=== PATIENT | female | born 1935 | race African-American/Black ===

== ENCOUNTER 2017-05-19 17:55 | Emergency (ER) | payer MEDICARE, MEDICAID ==
[~2017-05-19] VITALS: Ht 167.6 cm; Wt 63.5 kg
[~2017-05-19 17:55] MED LIST: ALENDRONATE SOD70 MG ORAL; CIPROFLOXACIN500 M2 ORAL; DULERA 100 MCG/13 GM INH; LISINOPRIL20 MG ORAL; NORCO 5-325 TA1 EACH ORAL
[2017-05-19 18:10] VITALS: BP 158/86
[2017-05-19] MEDS ORDERED: ATIVAN0.5 MG ORAL (19:29)
[2017-05-19 19:41] VITALS: BP 158/86
--- NOTE | 2017-05-19 21:01 | Emergency Room Report ---
History of Present Illness General Chief Complaint: Pain Source: Patient Present Illness HPI The patient is an 81-year-old female presenting for feelings of anxiety and abdominal pain. She states that her grandsons have been arguing and are involved in her for the past week which is when she began to feel anxious. She states that she is having difficulty sleeping due to this. She states the abdominal pain began after the feelings of anxiety and is described as a 4/10 sharp sensation to the right abdomen. Does not radiate. She denies any chest pain or shortness of breath. She denies any other symptoms including nausea, vomiting, fever, chills Allergies: Coded Allergies: No Known Allergies (Unverified , 11/15/13) Patient History Past Medical History: see triage record Pertinent Family History: none Reviewed Nursing Documentation: PMH: Agreed, PSxH: Agreed Nursing Documentation-PMH Past Medical History: No History, Except For Hx Cardiac Problems: No Hx Hypertension: Yes Hx Pacemaker: No Hx Asthma: No Hx COPD: Yes Hx Diabetes: No Hx Cancer: No Hx Gastrointestinal Problems: No Hx Dialysis: No History Of Psychiatric Problem: Yes - Anxiety Hx Neurological Problems: No Hx Cerebrovascular Accident: No Hx Seizures: No Review of Systems All Other Systems: negative except mentioned in HPI Physical Exam Vital Signs Date Time Temp Pulse Resp B/P (MAP) Pulse Ox O2 Delivery O2 Flow Rate FiO2 05/19/17 18:09 98.2 67 15 158/86 95 Room Air Sp02 EP Interpretation: reviewed, normal General Appearance: no apparent distress, alert, GCS 15, non-toxic Head: normocephalic, atraumatic Eyes: bilateral eye normal inspection, bilateral eye PERRL ENT: hearing grossly normal, normal pharynx, no angioedema, normal voice Neck: full range of motion, supple/symm/no masses Respiratory: chest non-tender, lungs clear, normal breath sounds, no accessory muscle use, respiratory distress, speaking full sentences Cardiovascular #1: regular rate, rhythm, no edema, no gallop, no murmur, no rub Gastrointestinal: normal bowel sounds, non tender, soft, non-distended, no guarding Genitourinary: normal inspection, no CVA tenderness Musculoskeletal: back normal, gait/station normal, normal range of motion, non- tender Neurologic: alert, oriented x3, responsive, motor strength/tone normal, sensory intact, speech normal Psychiatric: judgement/insight normal, memory normal, mood/affect normal, no suicidal/homicidal ideation Skin: normal color, no rash, warm/dry, well hydrated Medical Decision Making PA Attestation Dr. Elliott is my supervising physician. Patient management was discussed with my supervising physician Diagnostic Impression: Primary Impression: Anxiety ER Course The patient is an 81-year-old female presenting for feelings of anxiety and abdominal pain Differential diagnoses considered but not limited to anxiety, gastritis, ACS, cholecystitis, among others PE: NAD. RRR. Lungs CTA bilat Abd is soft and non tender EKG and CXR unremarkable The patient will be treated with low-dose Ativan for one week and is to follow up with her primary doctor as soon as possible. She understands. ER precautions are given EKG Diagnostic Results EP Interpretation: NSR. No acute findings Rate: normal - 61 Rhythm: NSR ST Segments: no acute changes ASA given to the pt in ED: No PA Scribe Text EKG was reviewed and read with my supervising physician. No acute ST segment changes are seen. Normal rate and rhythm. No acute changes. Chest X-Ray Diagnostic Results Chest X-Ray Diagnostic Results : Chest X-Ray Ordered: Yes # of Views/Limited/Complete: 1 View Indication: Chest Pain EP Interpretation: Yes Interpretation: no consolidation, no effusion, no pneumothorax Impression: No acute disease Electronically Signed by: Campbell Elliott MD PA Scribe Text I am acting as scribe for my supervising physician. My supervising physician's interpretation of the chest xrays are there is no consolidation, no effusion, no acute cardiopulmonary disease, no pneumothorax Last Vital Signs Date Time Temp Pulse Resp B/P (MAP) Pulse Ox O2 Delivery O2 Flow Rate FiO2 05/19/17 19:41 98.2 15 158/86 95 Room Air 05/19/17 18:09 67 Status: improved Disposition: HOME, SELF-CARE Condition: Improved Scripts Lorazepam* (ATIVAN*) 0.5 Mg Tablet 0.5 MG ORAL QHS, #7 TAB Prov: BALDEMAR GAMBOA 05/19/17 Patient Instructions: Panic Attacks Additional Instructions: I discussed my findings with the patient. All questions and concerns have been answered. Treatment and medication compliance have been addressed. I advised the patient that they need to follow up with Primary doctor as soon as possible. Return to ED if symptoms worsen, new symptoms arise, or if needed for any reason. Patient verbalized understanding of discharge instructions. BALDEMAR GAMBOA May 19, 2017 21:01
--- NOTE | 2017-05-20 09:55 | Diagnostic Imaging Report ---
Indication: Chest Technique: One view of the chest Comparison: 10/28/2007 Findings: Lungs and pleural spaces are clear. The heart size is normal. Aorta is elongated tortuous and calcified. No significant interim change Impression: No acute process
== END 2017-05-19 19:41 | disposition home or self-care (01) ==
LOC: EMR 19:40
DX: F41.9 Anxiety disorder, unspecified (principal); I10 Essential (primary) hypertension; J44.9 Chronic obstructive pulmonary disease, unspecified; R07.9 Chest pain, unspecified; R10.9 Unspecified abdominal pain
CPT/HCPCS: 71010; 93005; 99284

== ENCOUNTER 2017-12-29 14:54 | Emergency (ER) | payer MEDICARE, MEDICAID ==
[~2017-12-29] VITALS: Ht 162.6 cm; Wt 77.1 kg
[~2017-12-29 14:54] MED LIST changes: +ATIVAN0.5 MG ORAL
[2017-12-29 15:52] VITALS: BP 160/91
--- NOTE | 2017-12-29 16:06 | Emergency Room Report ---
History of Present Illness General Chief Complaint: Eye Problems Source: Patient (Gabby Tate) Present Illness HPI 82-year-old female presents to the emergency department complaining of acute onset of redness in the right eye that she noticed this morning. Patient denies pain she denies visual changes denies floaters, halos around lights, visual loss or blurry vision. Patient denies trauma or fall she denies history of high blood pressure. She denies taking blood thinning medications. Denies discharge from the eyes, crusting or itching. Patient denies swelling of the eyelids. Denies sudden headache. Denies photophobia (Gabby Tate) Allergies: Coded Allergies: No Known Allergies (Unverified , 11/15/13) Patient History Past Medical History: see triage record Past Surgical History: none Pertinent Family History: none Reviewed Nursing Documentation: PMH: Agreed; PSxH: Agreed (Gabby Tate) Nursing Documentation-PMH Past Medical History: No History, Except For Hx Cardiac Problems: No Hx Hypertension: Yes Hx Pacemaker: No Hx Asthma: No Hx COPD: Yes Hx Diabetes: No Hx Cancer: No Hx Gastrointestinal Problems: No Hx Dialysis: No Hx Neurological Problems: No Hx Cerebrovascular Accident: No Hx Seizures: No (Gabby Tate) Review of Systems All Other Systems: negative except mentioned in HPI (Gabby Tate) Physical Exam Vital Signs Date Time Temp Pulse Resp B/P (MAP) Pulse Ox O2 Delivery O2 Flow Rate FiO2 12/29/17 15:14 98.3 64 16 160/91 94 Room Air 98.2 Sp02 EP Interpretation: reviewed, normal General Appearance: no apparent distress, alert, GCS 15, non-toxic Head: normocephalic, atraumatic Eyes: bilateral eye normal inspection, bilateral eye PERRL, bilateral eye EOMI , bilateral eye visual acuity - right eye 20/20 left 20/40, bilateral eye other - Subconjunctival hemorrhage medially in the right eye some lateral extension covering approximately 45% of the eye. No evidence of hyphema ENT: hearing grossly normal, normal voice Neck: full range of motion Respiratory: speaking full sentences Cardiovascular #1: regular rate, rhythm Gastrointestinal: non tender Musculoskeletal: back normal, gait/station normal, normal range of motion, non- tender Neurologic: alert, oriented x3, responsive, motor strength/tone normal, sensory intact, normal gait, speech normal, grossly normal Psychiatric: judgement/insight normal Skin: normal color, no rash, warm/dry, well hydrated (Gabby Tate) Medical Decision Making [place] Attestation Dr. zamudio is my supervising Physician whom patient management has been discussed with. (Gabby Tate) Medicare Attestation The history of Cassidy Lopes has been reviewed and management options for her have been examined and discussed by Logan Salgado. I have personally examined and interviewed the patient. (Logan Salgado MD) Diagnostic Impression: Primary Impression: Subconjunctival hemorrhage of right eye ER Course 82-year-old female presents to the emergency department complaining of acute onset of redness in the right eye that she noticed this morning. Patient denies pain she denies visual changes denies floaters, halos around lights, visual loss or blurry vision. Patient denies trauma or fall she denies history of high blood pressure. She denies taking blood thinning medications. Denies discharge from the eyes, crusting or itching. Patient denies swelling of the eyelids. Denies sudden headache. Denies photophobia - Pt denies Contact lens use. Ddx considered but are not limited to: corneal abrasion, acute glaucoma, globe rupture, FB, Corneal Ulcer, conjunctivitis. Iridis, subconjunctival hemorrhage, blood dyscrasia. Vital signs: are WNL, pt. is afebrile H&PE are most consistent with: subconjunctival hemorrhage. ORDERS: ED INTERVENTIONS: none at this time. DISCHARGE: At this time pt. is stable for d/c to home. Will provide printed patient care instructions, and any necessary prescriptions. Care plan and follow up instructions have been discussed with the patient prior to discharge. . (Gabby Tate) Last Vital Signs Date Time Temp Pulse Resp B/P (MAP) Pulse Ox O2 Delivery O2 Flow Rate FiO2 12/29/17 15:52 98.2 72 16 160/91 94 Room Air 98.2 (Gabby Tate P.ASophie) Disposition: HOME, SELF-CARE Condition: Stable Scripts Eyelid Cleanser Comb No.7 (Ocusoft Lid Scrub) 50 Ml Foam..ml. 1 APPLIC TP BID, #50 ML Prov: Gabby Tate 12/29/17 Referrals: NON PHYSICIAN (PCP) Patient Instructions: Subconjunctival Hemorrhage Additional Instructions: Take medications as directed. Follow up with a Mechanical Operator in 3 days, even if your symptoms have resolved. --Please review list of primary care clinics, if you do not already have a primary care provider Return sooner to ED if new symptoms occur, or current symptoms become worse. - Please note that this Emergency Department Report was dictated using [employer] and safety helper technology software, occasionally this can lead to erroneous entry secondary to interpretation by the dictation equipment. Gabby Tate December 29, 2017 16:06 Logan Salgado MD January 02, 2018 14:02
[2017-12-29] MEDS ORDERED: OCUSOFT LID SCR50 M1 TP (16:07)
[2017-12-29 17:17] VITALS: BP 160/91
== END 2017-12-29 16:20 | disposition home or self-care (01) ==
LOC: EMR 16:03
DX: H11.31 Conjunctival hemorrhage, right eye (principal); I10 Essential (primary) hypertension; J44.9 Chronic obstructive pulmonary disease, unspecified
CPT/HCPCS: 99283

== ENCOUNTER 2018-01-10 15:06 | Emergency (ER) | payer MEDICARE, MEDICAID ==
[~2018-01-10] VITALS: Ht 167.6 cm; Wt 65.8 kg
[~2018-01-10 15:06] MED LIST changes: +OCUSOFT LID SCR50 M1 TP
--- NOTE | 2018-01-10 15:38 | Emergency Room Report ---
History of Present Illness General Chief Complaint: Lower Extremity Injury Source: Patient, Medical Record Present Illness HPI The patient states that she stubbed her toe a couple days ago and has bruising on her toe. She states that it is on her right fifth toe. She has no other complaints, pain or injury. She does have tenderness on the fifth toe. Allergies: Coded Allergies: No Known Allergies (Unverified , 11/15/13) Patient History Past Medical History: see triage record, HTN, COPD Social History: Denies: smoking, alcohol use, drug use Reviewed Nursing Documentation: PMH: Agreed; PSxH: Agreed Nursing Documentation-PMH Past Medical History: No History, Except For Hx Cardiac Problems: No Hx Hypertension: Yes Hx Pacemaker: No Hx Asthma: No Hx COPD: Yes Hx Diabetes: No Hx Cancer: No Hx Gastrointestinal Problems: No Hx Dialysis: No Hx Neurological Problems: No Hx Cerebrovascular Accident: No Hx Seizures: No Review of Systems All Other Systems: negative except mentioned in HPI Physical Exam Vital Signs Date Time Temp Pulse Resp B/P (MAP) Pulse Ox O2 Delivery O2 Flow Rate FiO2 01/10/18 15:14 98.0 69 18 155/85 95 Room Air 98.1 Sp02 EP Interpretation: reviewed, normal General Appearance: no apparent distress, alert, GCS 15, non-toxic Head: normocephalic, atraumatic Eyes: bilateral eye normal inspection, bilateral eye PERRL ENT: hearing grossly normal, normal pharynx, no angioedema, normal voice Neck: normal inspection Respiratory: no respiratory distress, no retraction, no accessory muscle use, speaking full sentences Rectal: deferred Musculoskeletal: back normal, gait/station normal, normal range of motion, other - ecchymosis and tenderness over R. middle phalanx of 5th toe Neurologic: alert, oriented x3, responsive, motor strength/tone normal, sensory intact, speech normal Psychiatric: judgement/insight normal, memory normal, mood/affect normal, no suicidal/homicidal ideation Skin: warm/dry, well hydrated, other - See above in MSK exam Medical Decision Making Diagnostic Impression: Primary Impression: Toe fracture, right ER Course This patient has a small phalanx fracture of the right fifth toe. The toe was claudio taped. The patient was instructed to wear hard soled shoes and follow-up with her geospatial systems integrator. The patient was instructed to use ibuprofen and Tylenol as needed for pain. She is giving return precautions and follow-up instructions. Other X-Ray Diagnostic Results Other X-Ray Diagnostic Results : X-Ray ordered: R. 5th toe # of Views/Limited Vs Complete: Complete Indication: Pain EP Interpretation: Yes Interpretation: other - proximal phalanx fracture. Impression: Other - See above Electronically Signed by: Anastasiya Foreman Last Vital Signs Date Time Temp Pulse Resp B/P (MAP) Pulse Ox O2 Delivery O2 Flow Rate FiO2 01/10/18 15:14 98.0 69 18 155/85 95 Room Air 98.1 Status: improved Disposition: HOME, SELF-CARE Patient Instructions: Toe Dislocation, [id number] THAO FOREMAN D.O. January 10, 2018 15:38
--- NOTE | 2018-01-10 16:04 | Diagnostic Imaging Report ---
Indication: Pain, status post trauma Technique: 3 views of the right fourth and fifth toes Comparison: none Findings: No acute fractures. No dislocations. Fused. Distal interphalangeal joint-normal anatomic variant. No definite osseous erosions or radiopaque foreign body. Impression: No acute bony trauma
[2018-01-10 16:09] VITALS: BP 140/71
== END 2018-01-10 16:21 | disposition home or self-care (01) ==
LOC: EMR 16:21
DX: S92.511A Displaced fracture of proximal phalanx of right lesser toe(s), initial encounter for closed fracture (principal); W22.8XXA Striking against or struck by other objects, initial encounter; Y92.9 Unspecified place or not applicable; I10 Essential (primary) hypertension; J44.9 Chronic obstructive pulmonary disease, unspecified
CPT/HCPCS: 99283

== ENCOUNTER 2020-11-04 12:57 | Emergency (ER) | payer MEDICARE, MEDICAID ==
[~2020-11-04] VITALS: Ht 165.1 cm; Wt 61.2 kg
[2020-11-04] MEDS ORDERED: Acetaminophen 500mg (ES) tab ORAL ONE (14:30)
--- NOTE | 2020-11-04 15:00 | NUR ---
came toer complaints of cough and pain on lrft flank with cough
[2020-11-04] MEDS ORDERED: PROMETHAZINE-D118 ML ORAL (15:17)
[2020-11-04] MEDS ORDERED: TYLENOL EXTRA500 MG ORAL (15:17)
[2020-11-04] MEDS ORDERED: ALBUTEROL SULF8.5 G1 INH (15:17)
[2020-11-04] MEDS ORDERED: LEVOFLOXACIN750 MG ORAL (15:17)
[2020-11-04 15:57] VITALS: BP 130/80
--- NOTE | 2020-11-04 16:30 | NUR ---
discharged home with instruction and rx follow up with pmd
[2020-11-04 17:25] VITALS: BP 130/80
--- NOTE | 2020-11-04 17:30 | Diagnostic Imaging Report ---
Procedure: XRAY Chest 1v Reason for study: Reason For Exam: COUGH Comparison films: 05/19/2017. FINDINGS: A single one view chest is obtained. Vascularity is normal. The lung cabezas are clear bilaterally. Cardiac and mediastinal silhouette are within normal limits. CP angles are sharp. The bony thorax appear unremarkable. IMPRESSION: NO ACUTE CARDIOPULMONARY DISEASE.
--- NOTE | 2020-11-10 08:15 | Emergency Room Report ---
History of Present Illness General Chief Complaint: Upper Respiratory Illness Source: Patient Present Illness HPI 84-year-old female presents for evaluation. States she has been coughing for the last 2 days. Cough is dry. States that she has pain on her left side when coughing. Dull, 5 out of 10, nonradiating. Denies fevers or chills. Denies chest pain or shortness of breath. States that in August she did get Covid but she has recovered. She has also received 1 dose of the Covid vaccine so far. No other aggravating relieving factors. Denies any other associated symptoms Allergies: Coded Allergies: No Known Allergies (Unverified , 11/15/13) COVID-19 Screening Contact w/high risk pt: No Experienced COVID-19 symptoms?: No COVID-19 Testing performed PLASTERER JOURNEYMAN: No Patient History Past Medical History: HTN, COPD Past Surgical History: none Pertinent Family History: none Social History: Denies: smoking, alcohol use, drug use Now: No Immunizations: UTD Reviewed Nursing Documentation: PMH: Agreed; PSxH: Agreed Nursing Documentation-PMH Hx Cardiac Problems: No Hx Hypertension: Yes Hx Pacemaker: No Hx Asthma: No Hx COPD: Yes Hx Diabetes: No Hx Cancer: No Hx Gastrointestinal Problems: No Hx Dialysis: No Hx Neurological Problems: No Hx Cerebrovascular Accident: No Hx Seizures: No Review of Systems All Other Systems: negative except mentioned in HPI Physical Exam Sp02 EP Interpretation: reviewed, normal General Appearance: no apparent distress, alert, GCS 15, non-toxic Head: normocephalic, atraumatic Eyes: bilateral eye normal inspection, bilateral eye PERRL ENT: hearing grossly normal, normal pharynx, no angioedema, normal voice Neck: full range of motion, supple/symm/no masses Respiratory: lungs clear, normal breath sounds, speaking full sentences, other - reproduciblel left-sided chest wall pain Cardiovascular #1: regular rate, rhythm, no edema Cardiovascular #2: 2+ carotid (R), 2+ carotid (L), 2+ radial (R), 2+ radial (L), 2+ dorsalis pedis (R), 2+ dorsalis pedis (L) Gastrointestinal: normal bowel sounds, non tender, soft, non-distended, no guarding, no rebound Rectal: deferred Genitourinary: normal inspection, no CVA tenderness Musculoskeletal: back normal, normal range of motion, gait/station normal, non- tender Neurologic: alert, motor strength/tone normal, oriented x3, sensory intact, responsive, speech normal Psychiatric: judgement/insight normal, memory normal, mood/affect normal, no suicidal/homicidal ideation Reflexes: 3+ bicep (R), 3+ bicep (L), 3+ tricep (R), 3+ tricep (L), 3+ knee (R), 3+ knee (L) Skin: no rash Lymphatic: no adenopathy Medical Decision Making Diagnostic Impression: Primary Impression: Upper respiratory symptom ER Course Hospital Course 84-year-old female presents with cough, left-sided rib pain Differential diagnoses include: URI, pharyngitis, otitis media, asthma Clinical course Patient placed on stretcher. After initial history, physical exam reveals a female in no acute distress. Bilateral TM unremarkable. No pharyngeal erythema. No tonsillar exudates. No lymphadenopathy. lungs clear. abdomen soft. There is reproducible left-sided rib pain Chest x-ray shows no focal consolidation And history of COPD, age, comorbidities will discharge with antibiotics, cough medication and inhaler. Safe for discharge with close outpatient follow-up. States she has a PMD. Diagnosis - URI Stable and discharged home. Instructed to followup with PMD. Return to ED if symptoms recur or worsen Chest X-Ray Diagnostic Results Chest X-Ray Diagnostic Results : Chest X-Ray Ordered: Yes # of Views/Limited/Complete: 1 View Indication: Other EP Interpretation: Yes Interpretation: no consolidation, no effusion, no pneumothorax, no acute cardiopulmonary disease Impression: No acute disease Electronically Signed by: Electronically signed by Logan Salgado MD Status: improved Disposition: HOME, SELF-CARE Condition: Stable Scripts Albuterol Sulfate* (Albuterol Sulfate Hfa*) 8.5 Gm Hfa.aer.ad 2 PUFF INH Q4H, #1 INH Prov: Logan Salgado MD 11/04/20 Acetaminophen* (TYLENOL EXTRA STRENGTH*) 500 Mg Tablet 500 MG ORAL Q8H PRN for Prn Headache/Temp > 101, #30 TAB 0 Refills Prov: Logan Salgado MD 11/04/20 D-Methorphan Hb/Prometh Hcl* (PROMETHAZINE-DM SYRUP*) 118 Ml Syrup 5 ML ORAL Q6H PRN for For Cough, #118 ML 0 Refills Prov: Logan Salgado MD 11/04/20 Levofloxacin* (LEVOFLOXACIN*) 750 Mg Tablet 750 MG ORAL DAILY for 5 Days, TAB Prov: Logan Salgado MD 11/04/20 Referrals: NOT CHOSEN IPA/,REFERRING (PCP) Patient Instructions: Upper Respiratory Infection, Adult Logan Salgado MD Nov 10, 2020 08:15
== END 2020-11-04 16:40 | disposition home or self-care (01) ==
LOC: EMR 14:25
DX: R05 Cough (principal); R07.81 Pleurodynia; I10 Essential (primary) hypertension; J44.9 Chronic obstructive pulmonary disease, unspecified; R07.9 Chest pain, unspecified
CPT/HCPCS: 71045; 99283